=== PATIENT | female | born 1995 | race Caucasian/White ===

== ENCOUNTER 2019-06-08 11:33 | Observation (INO) ==
[2019-06-08] MEDS ORDERED: PEPCID 20 MG IV PREMIX* 20 MG/50 ML BAG IV PRN (14:38)
[2019-06-08 14:45] LABS: BILIRUBIN,URINE NEGATIVE (NEGATIVE); BLOOD/HEMOGLOBIN,URINE NEGATIVE (NEGATIVE); GLUCOSE, URINE NEGATIVE (NEGATIVE); KETONES,URINE NEGATIVE (NEGATIVE); LEUKOCYTE ESTERASE ,URINE NEGATIVE (NEGATIVE); NITRITES,URINE NEGATIVE (NEGATIVE); PROTEIN,URINE NEGATIVE (NEGATIVE); UROBILINOGEN,URINE NORMAL (NORMAL)
[2019-06-08 14:50] LABS: APPEARANCE,URINE CLEAR (CLEAR); COLOR,URINE YELLOW (YELLOW)
[2019-06-08 15:14] LABS: BASOPHILS % (AUTO) 0.3 % (0.2-1.0); EOSINOPHILS # (AUTO) 0.1 x10^3/uL (0.0-0.2); EOSINOPHILS % (AUTO) 0.7 % (0.9-2.9); HEMATOCRIT 44.1 % (36.0-47.0); HEMOGLOBIN 15.3 g/dL (12.0-16.0); LYMPHOCYTES # (AUTO) 4.3 X10^3/uL (1.3-2.9); LYMPHOCYTES % (AUTO) 41.5 % (21.0-51.0); MEAN CORPUSCULAR HEMOGLOBIN 30.9 pg (27.0-34.0); MEAN CORPUSCULAR HGB CONC 34.7 g/dL (33.0-35.0); MEAN PLATELET VOLUME 7.3 fL (7.4-11.0); MONOCYTES # (AUTO) 0.6 x10^3/uL (0.3-0.8); MONOCYTES % (AUTO) 5.8 % (0.0-13.0); NEUTROPHILS # (AUTO) 5.3 x10^3/uL (2.2-4.8); NEUTROPHILS % (AUTO) 51.7 % (42.0-75.0); PLATELET COUNT 318 X10^3/uL (150.0-450.0); RED BLOOD COUNT 4.95 X10^6/uL (3.5-5.4); RED CELL DISTRIBUTION WIDTH 12.8 % (11.6-16.5); WHITE BLOOD COUNT 10.3 X10^3/uL (3.6-10.0)
[2019-06-08 15:25] LABS: ALANINE AMINOTRANSFERASE 62 Units/L (12-78); ALKALINE PHOSPHATASE 74 Units/L (46-116); AMYLASE 70 Units/L (25-115); ASPARTATE AMINO TRANSFERASE 38 Units/L (15-37); BLOOD UREA NITROGEN 7 mg/dL (7-18); CALCIUM 9.2 mg/dL (8.5-10.1); CARBON DIOXIDE 27.4 mmol/L (21-32); CHLORIDE 102 mmol/L (98-107); CREATININE 0.91 mg/dL (0.55-1.02); LIPASE 81 Units/L (73-393); SODIUM 138 mmol/L (136-145); eGFR NON BLACK RACES > 60 (>60)
[2019-06-08] MEDS: NS 1000 ML 1,000 ML IV SCH (16:06)
[2019-06-08 17:37] VITALS: BMI 44.8
[2019-06-08] MEDS ORDERED: NS 100 ML IV 100 ML IV ONE (19:27)
--- NOTE | 2019-06-08 20:44 | CT ---
CT PELVIS WITH ORAL AND IV CONTRAST CLINICAL HISTORY: 24-year-old female with right lower quadrant pain. Suspected appendicitis. COMPARISON: None. TECHNIQUE: Multiple contiguous axial images were obtained following the administration of 100 mL Omnipaque 350 intravenously and oral contrast. Images were reformatted in the coronal and sagittal planes. Dose reduction techniques including Automated Exposure Control (AEC) and adjustment of mA and kV were utilized. FINDINGS: Imaged liver tip, ureters and bladder are unremarkable. Status post hysterectomy. Right corpus luteal cyst with left adnexa unremarkable. The imaged bowel is without obstruction or inflammation and there is no free fluid or free air within the peritoneal cavity. Appendix is normal. Scattered reactive lymph nodes throughout the mesentery. There are no pathologically enlarged lymph nodes in the abdomen or pelvis. The arteriovascular structures are within normal limits. Soft tissues are normal. The osseous structures are intact without fracture or malalignment. IMPRESSION: 1. Normal appendix. 2. Right corpus luteal cyst. 3. Nonspecific reactive lymph nodes throughout the mesentery can be seen with mesenteric adenitis, gastroenteritis and viral illness, correlate clinically. Reported By:
[2019-06-08] MEDS: DILAUDID INJ IVP PRN (21:02)
[2019-06-08] MEDS: ZOFRAN INJ 4 MG VIAL IVP PRN (22:05)
[2019-06-09] MEDS: DILAUDID INJ IVP PRN (04:05)
[2019-06-09] MEDS: NS 1000 ML 1,000 ML IV SCH ×4 (04:09→22:06)
[2019-06-09 04:52] LABS: BASOPHILS % (AUTO) 0.5 % (0.2-1.0); EOSINOPHILS % (AUTO) 0.4 % (0.9-2.9); HEMATOCRIT 39.6 % (36.0-47.0); HEMOGLOBIN 13.7 g/dL (12.0-16.0); LYMPHOCYTES # (AUTO) 3.5 X10^3/uL (1.3-2.9); LYMPHOCYTES % (AUTO) 35.8 % (21.0-51.0); MEAN CORPUSCULAR HEMOGLOBIN 31.1 pg (27.0-34.0); MEAN CORPUSCULAR HGB CONC 34.6 g/dL (33.0-35.0); MEAN CORPUSCULAR VOLUME 89.9 fL (80.0-100.0); MEAN PLATELET VOLUME 7.6 fL (7.4-11.0); MONOCYTES # (AUTO) 0.6 x10^3/uL (0.3-0.8); MONOCYTES % (AUTO) 5.7 % (0.0-13.0); NEUTROPHILS # (AUTO) 5.7 x10^3/uL (2.2-4.8); NEUTROPHILS % (AUTO) 57.6 % (42.0-75.0); PLATELET COUNT 280 X10^3/uL (150.0-450.0); RED BLOOD COUNT 4.41 X10^6/uL (3.5-5.4); RED CELL DISTRIBUTION WIDTH 12.4 % (11.6-16.5); WHITE BLOOD COUNT 9.9 X10^3/uL (3.6-10.0)
[2019-06-09 05:05] LABS: ALANINE AMINOTRANSFERASE 47 Units/L (12-78); ALBUMIN 3.2 g/dL (3.4-5.0); ALKALINE PHOSPHATASE 58 Units/L (46-116); ASPARTATE AMINO TRANSFERASE 25 Units/L (15-37); BLOOD UREA NITROGEN 7 mg/dL (7-18); CALCIUM 8.4 mg/dL (8.5-10.1); CARBON DIOXIDE 25.4 mmol/L (21-32); CHLORIDE 104 mmol/L (98-107); CREATININE 0.75 mg/dL (0.55-1.02); SODIUM 137 mmol/L (136-145); TOTAL PROTEIN 6.7 g/dL (6.4-8.2); eGFR NON BLACK RACES > 60 (>60)
--- NOTE | 2019-06-09 08:47 | DR.H&P ---
H&P - History & Physical for Day of: H&P Date: 06/08/19 - Chief Complaint Chief Complaint: rlq pain, n/v - History of Present Illness History of Present Illness: 24 WF ADMITTED WITH CO RLQ PAIN R/O APPENDICITIS. PT REPORTS SHE WAS SEEN AT [facility] AND [facility]. PT CO PAIN WORSE TO RLQ. PT DENIES ANY DIARRHEA, CO LOW GRADE FEVER. PT DENIES ANY CHANGES IN BOWEL HABITS, NO VAGINAL DC. PT ADMITTED FOR TREATMENT AND EVALUATION OF ACUTE ABDOMINAL PAIN. - Past Medical History Past Medical History: Anxiety, Hypothyroidism Additional Medical History: Mllerian agenesis - Past Surgical History Surgical History: Cholecystectomy, Other - Family History Family Medical History: Hypertension - Social History Does patient currently use any type of tobacco product: No Have you used tobacco products in the last 12 months: No Type of Tobacco Use: None Does any household member use tobacco: No Alcohol Use: None Drug Use: None - Medications Home Medications: morphine Allergy (Verified 06/08/19 14:36) - Review of Systems Constitutional: Fever (LOW GRADE), Weakness Respiratory: No Symptoms Reported Cardiovascular: Palpitations Gastrointestinal: Nausea, Vomiting, Abdominal Pain. denies: Diarrhea, Constipation Genitourinary: denies: Incontinence, Hematuria Musculoskeletal: No Symptoms Reported Skin: No Symptoms Reported Neurological: No Symptoms Reported - Physical Exam Vital Signs: Temperature 98.0 F Pulse Rate [Left Brachial] 52 Respiratory Rate 18 Blood Pressure [Left Arm] 121/58 O2 Sat by Pulse Oximetry 98 Oriented: Normal Eyes: Normal Ear: Normal Nose: Normal Throat: Normal Respiratory: Clear Throughout Cardiovascular: Normal. negative: Murmur Auscultation: Bowel Sounds: Normal Palpation: Normal Tenderness: RLQ Skin: Normal Musculoskeletal: Normal Psychiatric: Anxiety Affect: Anxious Speech Pattern: Clear, Appropriate - Assessment/Plan (1) Acute right lower quadrant pain Status: Acute Plan: ADMIT, CT ABD PELVIS WITH CONTRAST. GENTLE IV HYDRATION, PAIN CONTROL. ADMISSION LABS CBC CMP UA, NPO. SURGICAL CONSULTATION (2) Fever Status: Acute (3) Right ovarian cyst Status: Acute - Allergies Allergies/Adverse Reactions: Allergies Allergy/AdvReac Type Severity Reaction Status Date / Time morphine Allergy Verified 06/08/19 14:36
[2019-06-09] MEDS ORDERED: DILAUDID INJ IVP PRN (08:50)
[2019-06-09 09:27] LABS: FREE T4 (FREE THYROXINE) 0.82 ng/dL (0.76-1.46); TSH (3RD GENERATION) 4.474 uIU/mL (0.358-3.74)
[2019-06-09] MEDS ORDERED: NORCO 5/325 MG TAB PO PRN (09:36)
--- NOTE | 2019-06-09 10:33 | DR.PROGNOT ---
Hospital Progress Notes - Progress Note for Day of: Progress Note Date: 06/09/19 - Chief Complaint Chief Complaint: still having moderate RLQ pain . no nausea , no vomiting . no diarrhea . repeated CT showed Rt ovarian cyst and mesenteric adenopathy with normal appendix . normal CBC and afebrile - Past Medical Family Social History Past Med/Fam/Surg Hx: No changes since H&P Allergies: Allergies morphine Allergy (Verified 06/08/19 14:36) - Review Of Systems ROS: No change since H&P - Vital Signs Vital Signs: Temperature 98.0 F Pulse Rate [Left Brachial] 52 Respiratory Rate 18 Blood Pressure [Left Arm] 121/58 O2 Sat by Pulse Oximetry 98 - Physical Exam Oriented: Normal Eyes: Normal Ear: Normal Nose: Normal Throat: Normal Respiratory: Normal Cardiovascular: Normal. negative: Murmur GI:Auscultation: Normal GI:Palpation: Normal GI: Tenderness: RLQ (still having RLQ tenderness wit mild moderate rebound . BS hypoactive .) Skin: Normal Musculoskeletal: Normal Psychiatric: Anxiety Affect: Anxious Speech Pattern: Clear, Appropriate - Laboratory and Diagnostics Result Diagrams: 06/09/19 04:24 06/09/19 04:24 Labs: 06/08/19 14:30 Urine,Clean Catch Urine Culture - Preliminary Laboratory WBC 9.9 X10^3/uL (3.6-10.0) 06/09/19 04:24 RBC 4.41 X10^6/uL (3.5-5.4) 06/09/19 04:24 Hgb 13.7 g/dL (12.0-16.0) 06/09/19 04:24 Hct 39.6 % (36.0-47.0) 06/09/19 04:24 MCV 89.9 fL (80.0-100.0) 06/09/19 04:24 MCH 31.1 pg (27.0-34.0) 06/09/19 04:24 MCHC 34.6 g/dL (33.0-35.0) 06/09/19 04:24 RDW 12.4 % (11.6-16.5) 06/09/19 04:24 Plt Count 280 X10^3/uL (150.0-450.0) 06/09/19 04:24 MPV 7.6 fL (7.4-11.0) 06/09/19 04:24 Neut % (Auto) 57.6 % (42.0-75.0) 06/09/19 04:24 Lymph % (Auto) 35.8 % (21.0-51.0) 06/09/19 04:24 [place] % (Auto) 5.7 % (0.0-13.0) 06/09/19 04:24 Eos % (Auto) 0.4 % (0.9-2.9) L 06/09/19 04:24 Baso % (Auto) 0.5 % (0.2-1.0) 06/09/19 04:24 Neut # (Auto) 5.7 x10^3/uL (2.2-4.8) H 06/09/19 04:24 Lymph # (Auto) 3.5 X10^3/uL (1.3-2.9) H 06/09/19 04:24 [place] # (Auto) 0.6 x10^3/uL (0.3-0.8) 06/09/19 04:24 Eos # (Auto) 0.0 x10^3/uL (0.0-0.2) 06/09/19 04:24 Baso # (Auto) 0.0 X10^3/uL (0.0-0.1) 06/09/19 04:24 Absolute Nucleated RBC 0.1 /100WBC 06/09/19 04:24 ESR 2 MM/HOUR (0-20) 06/09/19 04:24 Sodium 137 mmol/L (136-145) 06/09/19 04:24 Corrected Sodium TNP 06/09/19 04:24 Potassium 3.9 mmol/L (3.5-5.1) 06/09/19 04:24 Chloride 104 mmol/L (98-107) 06/09/19 04:24 Carbon Dioxide 25.4 mmol/L (21-32) 06/09/19 04:24 BUN 7 mg/dL (7-18) 06/09/19 04:24 Creatinine 0.75 mg/dL (0.55-1.02) 06/09/19 04:24 Est GFR (MDRD) Af Amer > 60 (>60) 06/09/19 04:24 Est GFR (MDRD) Non-Af > 60 (>60) 06/09/19 04:24 Glucose 88 mg/dL (65-99) 06/09/19 04:24 Calcium 8.4 mg/dL (8.5-10.1) L 06/09/19 04:24 Corrected Calcium 9.0 mg/dL (8.5-10.1) 06/09/19 04:24 Total Bilirubin 0.40 mg/dL (0.2-1.0) 06/09/19 04:24 AST 25 Units/L (15-37) 06/09/19 04:24 ALT 47 Units/L (12-78) 06/09/19 04:24 Alkaline Phosphatase 58 Units/L (46-116) 06/09/19 04:24 C-Reactive Protein 1.40 mg/L (0-3.0) 06/09/19 04:24 Total Protein 6.7 g/dL (6.4-8.2) 06/09/19 04:24 Albumin 3.2 g/dL (3.4-5.0) L 06/09/19 04:24 Globulin 3.5 g/dL (2.5-4.5) 06/09/19 04:24 Albumin/Globulin Ratio 0.9 Ratio (1.1-2.1) L 06/09/19 04:24 Amylase 70 Units/L (25-115) 06/08/19 15:05 Lipase 81 Units/L (73-393) 06/08/19 15:05 Free T4 0.82 ng/dL (0.76-1.46) 06/09/19 04:24 TSH 3rd Generation 4.474 uIU/mL (0.358-3.74) H 06/09/19 04:24 Specimen Type Clean catch urine 06/08/19 14:30 Urine Color Yellow (YELLOW) 06/08/19 14:30 Urine Appearance Clear (CLEAR) 06/08/19 14:30 Urine pH 7.0 (5.0 - 8.0) 06/08/19 14:30 Ur Specific [place] 1.010 (1.000-1.030) 06/08/19 14:30 Urine Protein Negative (NEGATIVE) 06/08/19 14:30 Urine Glucose (UA) Negative (NEGATIVE) 06/08/19 14:30 Urine Ketones Negative (NEGATIVE) 06/08/19 14:30 Urine Occult Blood Negative (NEGATIVE) 06/08/19 14:30 Urine Nitrite Negative (NEGATIVE) 06/08/19 14:30 Urine Bilirubin Negative (NEGATIVE) 06/08/19 14:30 Urine Urobilinogen Normal (NORMAL) 06/08/19 14:30 Ur Leukocyte Esterase Negative (NEGATIVE) 06/08/19 14:30 - Assessment and Plan 1: RLQ pain . mesenteric adenitis and Rt ovarian cyst . will advance diet . if still having significant pain will do diagnostic laparoscopy in am . - Problem Patient Problems: Patient Problems Acute right lower quadrant pain (Acute) R10.31 Fever (Acute) R50.9 Right ovarian cyst (Acute) N83.201
[2019-06-09] MEDS: ZOFRAN INJ 4 MG VIAL IVP PRN ×2 (11:44→17:59)
[2019-06-09] MEDS: TORADOL 15 MG VIAL IVP PRN ×2 (11:45→21:54)
[2019-06-09] MEDS: FLAGYL IV PREMIX 500 MG BAG 500 MG/100 ML BAG IV SCH ×3 (11:46→20:57)
[2019-06-09 12:37] LABS: CRYPTOSPORIDIUM PARVUM ANTIGEN NEGATIVE (NEGATIVE); GIARDIA LAMBLIA ANTIGEN NEGATIVE (NEGATIVE)
[2019-06-09] MEDS ORDERED: ZITHROMAX TAB 250 MG PO NR (15:00)
[2019-06-09] MEDS: BIAXIN TAB 500 MG PO SCH (20:56)
[2019-06-09] MEDS: AMOXIL CAP 500 MG PO SCH (20:56)
[2019-06-09] MEDS: PROTONIX TAB 40 MG PO SCH (20:56)
[2019-06-10] MEDS: FLAGYL IV PREMIX 500 MG BAG 500 MG/100 ML BAG IV SCH ×2 (03:47→08:51)
[2019-06-10] MEDS: TORADOL 15 MG VIAL IVP PRN (04:48)
[2019-06-10 05:06] LABS: BASOPHILS % (AUTO) 0.3 % (0.2-1.0); EOSINOPHILS # (AUTO) 0.1 x10^3/uL (0.0-0.2); HEMATOCRIT 38.8 % (36.0-47.0); HEMOGLOBIN 13.2 g/dL (12.0-16.0); LYMPHOCYTES # (AUTO) 3.8 X10^3/uL (1.3-2.9); LYMPHOCYTES % (AUTO) 43.1 % (21.0-51.0); MEAN CORPUSCULAR HEMOGLOBIN 30.6 pg (27.0-34.0); MEAN CORPUSCULAR HGB CONC 34.1 g/dL (33.0-35.0); MEAN CORPUSCULAR VOLUME 89.8 fL (80.0-100.0); MEAN PLATELET VOLUME 7.4 fL (7.4-11.0); MONOCYTES # (AUTO) 0.6 x10^3/uL (0.3-0.8); MONOCYTES % (AUTO) 6.7 % (0.0-13.0); NEUTROPHILS # (AUTO) 4.3 x10^3/uL (2.2-4.8); NEUTROPHILS % (AUTO) 48.9 % (42.0-75.0); PLATELET COUNT 273 X10^3/uL (150.0-450.0); RED BLOOD COUNT 4.32 X10^6/uL (3.5-5.4); RED CELL DISTRIBUTION WIDTH 12.9 % (11.6-16.5); WHITE BLOOD COUNT 8.7 X10^3/uL (3.6-10.0)
[2019-06-10 05:17] LABS: ALANINE AMINOTRANSFERASE 42 Units/L (12-78); ALBUMIN 3.1 g/dL (3.4-5.0); ALKALINE PHOSPHATASE 60 Units/L (46-116); ASPARTATE AMINO TRANSFERASE 24 Units/L (15-37); BLOOD UREA NITROGEN 7 mg/dL (7-18); CALCIUM 8.3 mg/dL (8.5-10.1); CARBON DIOXIDE 23.7 mmol/L (21-32); CHLORIDE 106 mmol/L (98-107); CREATININE 0.86 mg/dL (0.55-1.02); SODIUM 139 mmol/L (136-145); TOTAL PROTEIN 6.2 g/dL (6.4-8.2); eGFR NON BLACK RACES > 60 (>60)
[2019-06-10] MEDS: AMOXIL CAP 500 MG PO SCH ×2 (07:48→08:52)
[2019-06-10] MEDS: BIAXIN TAB 500 MG PO SCH ×2 (07:48→08:52)
[2019-06-10] MEDS: PROTONIX TAB 40 MG PO SCH ×2 (07:48→08:52)
[2019-06-10] MEDS: NS 1000 ML 1,000 ML IV SCH (07:51)
[2019-06-10 08:04] VITALS: BP 125/50
== END 2019-06-10 10:45 | disposition home or self-care (01) ==
LOC: MED/SURG
PROVIDERS: ADMIT Internal Medicine; ATTEND Internal Medicine
CPT/HCPCS: 36415; 72193; 80053; 81003; 82150; 82270; 83630; 83690; 84439; 84443; 85025; 85652; 86140; 87045; 87086; 87328; 87329; 87338; 87427; 87449; 87493; 87899; A4216; A4222; Q0144; S0030; G0378; J1170; J1885; J2405; J7030; J7050